=== PATIENT | female | born 1985 | race Caucasian/White ===

== ENCOUNTER → 2017-09-01 | Outpatient (CLI) | payer OTHER ==
[2015-11-07 02:49] VITALS: BP 120/76
--- NOTE | 2017-09-01 16:55 | KCIC ---
MR of the right shoulder Indication: Right shoulder pain and decreased range of motion since February 2017. Technique: Standard multiplanar sequences are obtained. Findings: Acromioclavicular joint: Mildly degenerative. Rotator cuff: No rotator cuff tear. No significant subacromial subdeltoid bursal effusion. Glenohumeral cartilage: No acute defect or advanced DJD. Fluid: No significant joint effusion. Labrum: No evidence of labral tear or para labral cyst. Biceps tendon: Intact Bones: No lesion or acute fracture. Soft tissue: No acute findings. Impression: No evidence of acute abnormality or internal derangement. Electronically signed by: Francisco Javier Vences MD (09/01/2017 4:52 PM) [id number]
== END | disposition home or self-care (01) ==
LOC: KCIC MRI 16:05
PROVIDERS: ATTEND Nurse Practitioner Gerontology
DX: M25.511 Pain in right shoulder (principal)
CPT/HCPCS: 73221